=== PATIENT | male | born 1970 | race African-American/Black ===

== ENCOUNTER 2021-09-05 12:10 | Emergency (ER) | payer OTHER ==
[~2021-09-05 12:10] MED LIST: CARAFATE S500 MG/TSP PO; ETODOLAC500 MG PO; NEXIUM40 MG PO; ZOFRAN8 MG PO
[2021-09-05 14:44] LABS: BILIRUBIN NEGATIVE (NEGATIVE); BLOOD NEGATIVE Ery/uL (NEGATIVE); CLARITY CLEAR (CLEAR); COLOR YELLOW (YELLOW); GLUCOSE (U) NORMAL (NORMAL); LEUKOCYTES NEGATIVE Leu/uL (NEGATIVE); NITRITE NEGATIVE (NEGATIVE); PROTEIN NEGATIVE (NEGATIVE); SPECIFIC GRAVITY >=1.030 (1.001-1.030)
[2021-09-05 14:47] LABS: AMPHETAMINES POSITIVE (NEGATIVE); BARBITURATES NEGATIVE (NEGATIVE); ECSTASY (MDMA) POSITIVE (NEGATIVE); MARIJUANA (THC) POSITIVE (NEGATIVE); METHADONE NEGATIVE (NEGATIVE); OPIATES NEGATIVE (NEGATIVE)
[2021-09-05 14:48] LABS: OXYCODONE NEGATIVE (NEGATIVE)
[2021-09-05 15:09] LABS: BASOPHIL 1.1 % (0-2); EOSINOPHIL 7.1 % (0-5); HCT 40.1 % (42.0-52.0); HGB 13.8 g/dl (13.2-18.0); LYMPHOCYTE 38.9 % (15-48); MCH 29.6 pg (25.0-31.0); MCHC 34.4 g/dL (32.0-36.0); MCV 86.1 fL (78.0-100.0); MONOCYTE 9.6 % (0-12); MPV 10.7 fL (6.0-9.5); NRBC 0; PLT 244 K/uL (150-400); RBC 4.66 M/uL (4.70-6.00); WBC 3.7 K/uL (4.0-10.5)
[2021-09-05 15:27] LABS: ALBUMIN 3.4 g/dL (3.4-5.0); BILIRUBIN - TOTAL 0.2 mg/dL (0.2-1.0); BUN/CREAT RATIO (CALC) 14.7 RATIO; CREATININE 0.75 mg/dL (0.67-1.17); GLOBULIN (CALCULATION) 3.2 g/dL; POTASSIUM 3.7 mmol/L (3.5-5.1); TOTAL PROTEIN 6.6 g/dL (6.4-8.2)
[2021-09-05] MEDS ORDERED: NAPROXEN500 MG PO (16:33)
[2021-09-05] MEDS ORDERED: VIBRAMYCIN100 MG PO (16:33)
== END 2021-09-05 17:40 | disposition home or self-care (01) ==
LOC: FER 12:10
PROVIDERS: Internal Medicine
DX: N45.1 Epididymitis (principal); F17.210 Nicotine dependence, cigarettes, uncomplicated
CPT/HCPCS: 36415; 76870; 80053; 80305; 81003; 85025; J0696

== ENCOUNTER 2022-02-14 20:44 | Emergency (ER) | payer OTHER ==
[~2022-02-14 20:44] MED LIST changes: +NAPROXEN500 MG PO; +VIBRAMYCIN100 MG PO
[2022-02-14 21:30] LABS: BASOPHIL 1.3 % (0-2); EOSINOPHIL 10.9 % (0-5); HCT 34.9 % (42.0-52.0); LYMPHOCYTE 43.8 % (15-48); MCH 30.7 pg (25.0-31.0); MCHC 34.4 g/dL (32.0-36.0); MCV 89.3 fL (78.0-100.0); MONOCYTE 8.9 % (0-12); MPV 10.2 fL (6.0-9.5); NEUTROPHIL 35.1 % (41-80); NRBC 0; PLT 232 K/uL (150-400); RBC 3.91 M/uL (4.70-6.00); RDW 15.6 % (11.5-14.0)
[2022-02-14 22:16] LABS: ALBUMIN 3.6 g/dL (3.4-5.0); BILIRUBIN - TOTAL 0.2 mg/dL (0.2-1.0); BUN/CREAT RATIO (CALC) 14.5 RATIO; CREATININE 0.76 mg/dL (0.67-1.17); GLOBULIN (CALCULATION) 2.8 g/dL; POTASSIUM 3.3 mmol/L (3.5-5.1); TOTAL PROTEIN 6.4 g/dL (6.4-8.2)
[2022-02-16 07:09] LABS: HIV AB/P24 AG SCREEN Non Reactive (Non Reactive)
== END 2022-02-15 00:19 | disposition home or self-care (01) ==
LOC: FER 20:44
PROVIDERS: Emergency Medicine
DX: R07.89 Other chest pain (principal); F17.200 Nicotine dependence, unspecified, uncomplicated
CPT/HCPCS: 36415; 71045; 71275; 80053; 84484; 85025; 87389; 93005; J7030; Q9967

== ENCOUNTER 2022-05-04 08:42 | Emergency (ER) | payer OTHER ==
[2022-05-04 09:45] LABS: BASOPHIL 0.5 % (0-2); EOSINOPHIL 10.4 % (0-5); HCT 35.4 % (42.0-52.0); LYMPHOCYTE 23.1 % (15-48); MCH 30.1 pg (25.0-31.0); MCHC 33.9 g/dL (32.0-36.0); MCV 88.7 fL (78.0-100.0); MPV 10.8 fL (6.0-9.5); NEUTROPHIL 58.7 % (41-80); NRBC 0; PLT 181 K/uL (150-400); RBC 3.99 M/uL (4.70-6.00); RDW 14.8 % (11.5-14.0); WBC 3.9 K/uL (4.0-10.5)
[2022-05-04 10:22] LABS: MARIJUANA (THC) NEGATIVE (NEGATIVE)
[2022-05-04 10:22] LABS: ALBUMIN 3.1 g/dL (3.4-5.0); BILIRUBIN - TOTAL 0.3 mg/dL (0.2-1.0); BUN/CREAT RATIO (CALC) 16.7 RATIO; CREATININE 0.72 mg/dL (0.67-1.17); GLOBULIN (CALCULATION) 2.7 g/dL; POTASSIUM 3.4 mmol/L (3.5-5.1); TOTAL PROTEIN 5.8 g/dL (6.4-8.2)
[2022-05-04 10:23] LABS: AMPHETAMINES POSITIVE (NEGATIVE); BARBITURATES NEGATIVE (NEGATIVE); ECSTASY (MDMA) NEGATIVE (NEGATIVE); METHADONE NEGATIVE (NEGATIVE); OPIATES NEGATIVE (NEGATIVE); OXYCODONE NEGATIVE (NEGATIVE)
[2022-05-04 10:32] LABS: PROTHROMBIN TIME 12.9 SECONDS (11.9-13.9); PTT 33.3 SECONDS (24.9-34.6)
[2022-05-04 10:40] LABS: CORONAVIRUS 2019 SARS-COV-2 NEGATIVE (NEGATIVE); INFLUENZA A NAA NEGATIVE (NEGATIVE)
[2022-05-04] MEDS ORDERED: VENTOLIN HFA IN18 GM INH (11:42)
[2022-05-04] MEDS ORDERED: MEDROL 4MG DOSEP4 MG PO (11:42)
== END 2022-05-04 12:13 | disposition home or self-care (01) ==
LOC: FER 08:42
PROVIDERS: Internal Medicine
DX: R07.89 Other chest pain (principal); R06.2 Wheezing; F15.10 Other stimulant abuse, uncomplicated; F17.210 Nicotine dependence, cigarettes, uncomplicated; Z20.822 Contact with and (suspected) exposure to COVID-19
CPT/HCPCS: 36415; 71045; 80053; 80305; 84145; 84484; 85025; 85379; 85610; 85730; 93005; J2270; J2405; U0002

== ENCOUNTER 2022-05-18 07:28 | Emergency (ER) | payer OTHER ==
[~2022-05-18 07:28] MED LIST changes: +MEDROL 4MG DOSEP4 MG PO; +VENTOLIN HFA IN18 GM INH
[2022-05-18 09:29] LABS: BASOPHIL 0.9 % (0-2); EOSINOPHIL 3.4 % (0-5); HGB 13.3 g/dl (13.2-18.0); LYMPHOCYTE 7.9 % (15-48); MCH 30.6 pg (25.0-31.0); MCV 87.6 fL (78.0-100.0); MPV 10.8 fL (6.0-9.5); NEUTROPHIL 84.6 % (41-80); NRBC 0; PLT 252 K/uL (150-400); RBC 4.34 M/uL (4.70-6.00); WBC 4.7 K/uL (4.0-10.5)
[2022-05-18 09:54] LABS: BILIRUBIN 1+ mg/dL (NEGATIVE); BLOOD NEGATIVE Ery/uL (NEGATIVE); CLARITY CLEAR (CLEAR); COLOR YELLOW (YELLOW); GLUCOSE (U) TRACE mg/dL (NORMAL); LEUKOCYTES NEGATIVE Leu/uL (NEGATIVE); NITRITE NEGATIVE (NEGATIVE); PROTEIN TRACE (LOW) mg/dL (NEGATIVE); SPECIFIC GRAVITY >=1.030 (1.001-1.030); UROBILINOGEN 0.2 mg/dL (0.2-1.0)
[2022-05-18 10:01] LABS: BACTERIA TRACE
[2022-05-18] MEDS ORDERED: VIBRAMYCIN100 MG PO (10:01)
[2022-05-18] MEDS ORDERED: NAPROXEN500 MG PO (10:01)
[2022-05-18] MEDS ORDERED: NORCO 5-325 TA1 EACH PO (10:01)
[2022-05-18 10:02] LABS: MUCOUS TRACE; SPERM PRESENT
[2022-05-18 10:25] LABS: ALBUMIN 3.4 g/dL (3.4-5.0); BILIRUBIN - TOTAL 0.8 mg/dL (0.2-1.0); BUN/CREAT RATIO (CALC) 18.2 RATIO; CREATININE 0.77 mg/dL (0.67-1.17); GLOBULIN (CALCULATION) 2.6 g/dL; POTASSIUM 3.8 mmol/L (3.5-5.1)
[2022-05-19 22:09] LABS: CHLAMYDIA TRACHOMATIS, NAA Negative (Negative); NEISSERIA GONORRHOEAE, NAA Negative (Negative)
== END 2022-05-18 10:59 | disposition home or self-care (01) ==
LOC: FER 07:28
PROVIDERS: Internal Medicine
DX: N45.1 Epididymitis (principal); N28.1 Cyst of kidney, acquired; F17.210 Nicotine dependence, cigarettes, uncomplicated
CPT/HCPCS: 36415; 76870; 80053; 81001; 83690; 84145; 85025; 87491; 87591; 96372; J0696; J1170; J2405